=== PATIENT | male | born 1960 | race Caucasian/White ===

== ENCOUNTER 2023-02-07 08:47 | Outpatient (REF) | payer MEDICAID, SELFPAY ==
--- NOTE | ~2023-02-07 | XR_ITS ---
EXAMINATION: XR SHOULDER, LEFT CLINICAL INFORMATION: Pain, weakness and limited range of motion. COMPARISON: None available. TECHNIQUE: AP external rotation, Grashey, scapular Y, and axillary views of the left shoulder. FINDINGS: There is mild bony demineralization. The glenohumeral joint is intact. The acromioclavicular and coracoclavicular intervals are normal. There is moderate osteoarthritic change of the acromioclavicular joint. No fracture or dislocation is seen. There is mild irregularity of the undersurface of the distal acromion and of the greater tuberosity of the proximal left humerus. There is no abnormal soft tissue calcification or foreign body. No left pneumothorax is seen. XR/XR shoulder LT min 2V IMPRESSION: 1. No fracture or dislocation is seen. 2. 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 3. Findings are consistent with left rotator cuff impingement. No nataly calcific tendinitis is noted.
== END 2023-02-07 08:48 | disposition home or self-care (01) ==
LOC: HO.HHCX 08:47
PROVIDERS: Visit Provider General Practice
DX: M25.512 Pain in left shoulder (principal)
CPT/HCPCS: 73030

== ENCOUNTER 2023-04-10 08:51 | Outpatient (AMB) | payer MEDICAID, SELFPAY ==
--- NOTE | 2023-04-10 08:54 | A.OFFVIS_ITS ---
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 He reports that he has had ongoing pain for about 5 months now. Pain increases with most acitivties particularly above the shoulder activities and reaching. No previous treatments. He takes ibuprofen for the pain which no longer helps. 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 He complains of pain with daily activity, worse with overhead activity and at night, along with weakness. He has difficulty sleeping and has not been using his arm for all daily activities. He denies any prior treatment, and says NSAIDs are no longer helping his pain. He denies any recent falls or known injury. He says he slipped and fell on some ice several years ago, but this pain resolved with time. He stays active with exercise and daily activity, and he has been working on losing weight. 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 Review of Systems Const All systems reviewed & are unremarkable except as noted in HPI and below Physical Exam Const General: no acute distress, alert and awake Orientation/consciousness: patient oriented x3 HEENT Head: Yes normocephalic and Yes atraumatic Eyes EOM: EOMs intact bilaterally Resp Effort & Inspection: normal respiratory effort and able to speak in complete sentences Cardio Jugular venous distension: no JVD Skin General skin exam: turgor normal Rashes: no rashes Neuro General: patient oriented x3 Extrem Other: Left Shoulder: + H&N - empty can 90/120/35/S1 - liftoff Psych Appearance: grossly normal Affect: normal affect Attitude: cooperative Office Procedures Joint Injection/Drain Joint Injection/Drain Details: Injected 1 mL of Decadron and 3 mL 1% lidocaine and 3 mL of 0.25% Marcaine. Site was prepped using aseptic technique. Patient tolerated the procedure well. Primary Site: left shoulder Approach Used: posterolateral Coding 98497 - Large joint Procedure code (CPT) selection complete Results Reviewed Results Reviewed: 04/10/23 09:22 BUPivacaine MPF 0.25 % [Sensorcaine-MPF 0.25% 10 ML] 10 ml .ROUTE .STK-MED ONE Lidocaine HCl 2 % MPF [Xylocaine 2 % MPF] 5 ml .ROUTE .STK-MED ONE dexAMETHasone sod phosphate [Decadron] 4 mg .ROUTE .STK-MED ONE I personally reviewed relevant radiographs. moderate osteoarthritic change of the left acromioclavicular joint. Assessment & Plan Assessment & Plan (1) Impingement of left shoulder: Code(s): M25.812 - Other specified joint disorders, left shoulder Plan: This is a 62 year old man with left shoulder impingement. He has pain with daily activity, worse with overhead activity and at night. He is limited in his ADLs and has not been using his shoulder for daily activities. He denies any prior treatment. I discussed his diagnosis and treatment options. I recommend NSAIDs & PT. I injected his left shoulder today, which he tolerated well, ordered PT, prescribed Aleve, and provided him with a handout of at-home patricia-scapular strengthening exercises he can perform. He can follow up prn. Plan Scribed for Daniel Pitt MD by Anival Lopez, medical transcriptionist, on 04/10/23 at 9:20 AM, EST. Orders: Orders PT Evaluation and Treatment 04/10/23 M25.812 - Other specified joint disorders, left shoulder Coding Level of Care Code New Pt Level 3 (80612) Diagnoses Impingement of left shoulder M25.812 CPT Codes Coding - Large joint: 36521 - Large joint ([id number])
== END 2023-04-10 09:39 | disposition home or self-care (01) ==
PROVIDERS: Visit Provider Orthopaedic Surgery
DX: M25.812 Other specified joint disorders, left shoulder (principal)
CPT/HCPCS: 20610; 99204

== ENCOUNTER → 2023-04-10 08:51 | Outpatient (BNVA) | payer MEDICAID, SELFPAY | PROVIDERS: Visit Provider Orthopaedic Surgery | DX: M25.812 Other specified joint disorders, left shoulder (principal) | CPT/HCPCS: 20610; J1100 ==

== ENCOUNTER 2023-12-04 07:58 | Outpatient (AMB) | payer MEDICARE, SELFPAY ==
--- NOTE | 2023-12-04 08:05 | A.OFFPC_ITS ---
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 Intake Note: Pt is here to est care Pt needs referral for a colon screen last one over 20 years Allergies No Known Allergies Allergy (Unverified 12/04/23 08:38) Medication List - Last Reconciled 12/04/23 by JILL Fang No Known Home Meds Tobacco use date assessed: 12/04/23 Fall risk assessment: 1 Fall in past year Last assessed Fall Risk: 12/04/23 Dental Screening Dental Screen Date: 12/04/23 Did you have a dental visit in the last 12 months?: Yes Did you have a dental problem in the last 6 months where you did not have access to dental care?: No Was dental information given to patient?: Patient has dentist HPI HPI Comments History of Present Illness Details Patient is a 63-year-old male who I am meeting for the 1st time. He is not have a primary care provider in over 20 years. Patient is declining immunizations at this time. He will consider getting the shingles virus in the future. Patient is due for colonoscopy, will refer. Will draw full panel of labs. Will also draw A1c due to strong family history of diabetes type 2. Patient denies chest pain, shortness a breath, numbness, polyuria, polydipsia, nausea, vomiting, diarrhea. Patient has past medical history significant for sciatica right side, bilateral neuropathy of the feet bilaterally, left shoulder impingement. Patient has primary complaint of ear fullness, sinus tenderness, expect draining green and yellow mucus, cough, for the past 4 weeks. Patient states he feels like he has a hard time getting over illnesses. Has not tried any medication for relief. [facility] Surgical History History of appendectomy Family History Father Substance use disorder Father No problems noted. 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 1. Little interest or pleasure in doing things: nearly every day 2. Feeling down, depressed, or hopeless: nearly every day 3. Trouble falling or staying asleep, or sleeping too much: more than half the days 4. Feeling tired or having little energy: nearly every day 5. Poor appetite or overeating: several days 6. Feeling bad about yourself - or that you are a failure or have let yourself or your family down: several days 7. Trouble concentrating on things, such as reading the newspaper or watching television: several days 8. Moving or speaking so slowly that other people could have noticed. Or the opposite - being so fidgety or restless that you have been moving around a lot more than usual: several days 9. Thoughts that you would be better off or of hurting yourself in some way: not at all Total score: 15 Source: Developed by Drs. Wilner Bradford, Irina Stoddard, Joe Peguero and colleagues, with an educational melly from [employer]. Thrive Questionnaire Date Thrive assessed: 12/04/23 I am a: Patient What is your living situation today?: I have a steady place to live Within the past 12 months, did the food you bought not last and you didn't have the money to get more?: Sometimes True Within the past 12 months, did you worry whether your food would run out before you got money to buy more?: Sometimes True Do you have trouble paying for medicines?: Yes Do you have trouble getting transportation to medical appointments?: No Do you have trouble paying your heating and electricity bill?: No Do you have trouble taking care of your child, family member or friend?: Yes Do you have trouble with day-to-day activities such as bathing, preparing meals, shopping, managing finances, etc.?: Yes Are you currently unemployed and looking for a job?: No Are you interested in more education?: No THRIVE Score: 2 AUDIT C Alcohol Use Questionnaire (AUDIT-C) 1. How often do you have a drink containing alcohol?: Monthly or less 2. How many drinks containing alcohol do you have on a typical day when you are drinking?: 3 or 4 3. How often do you have six or more drinks on one occasion?: Never Total Score: 2 KHRIS-7 AMB Questionnaire KHRIS-7 Date KHRIS - 7 assessed: 12/04/23 Feeling nervous, anxious, or on edge: 1 = Several days Not being able to stop or control worryin = Several days Worrying too much about different things: 3 = Nearly every day Trouble relaxin = More than half the days Being so restless that it is hard to sit still: 1 = Several days Becoming easily annoyed or irritable: 3 = Nearly every day Feeling afraid as if something awful might happen: 3 = Nearly every day Total KHRIS-7 score (0-4 normal; 5-9 mild; 10-14 moderate; 15-21 severe): 14 Source: Developed by Drs. Wilner Bradford, Irina Stoddard, Joe Peguero and colleagues, with an educational melly from [employer]. Review of Systems Const Details: Constitutional : No Weight loss, No Fever, Admitgs some Chills, No Fatigue, Admits some Malaise ENT/Mouth : No sore throat, No Rhinorrhea, Admits ear fullness. Eyes: No Eye Pain, No Swelling, No Redness Cardiovascular : No Chest Pain, No SOB, No Dyspnea on Exertion, No Orthopnea, No Edema, No Palpitations Respiratory : Admits Cough, Admits green/brown Sputum, No Wheezing Gastrointestinal : No Nausea, No Vomiting, No Diarrhea, No Constipation, No abdominal Pain, No Hematochezia, No Melena Genitourinary : No Dysuria, No Urinary Frequency, No Hematuria, Musculoskeletal : Admits lower back pain. Skin : No Skin Lesions, No rash Neuro : No Weakness, Admits some Numbness, No Dizziness, No Headache Psych : No Anxiety/Panic, No Depression Heme/Lymph: No Bruising, No Bleeding,No Lymphadenopathy Endocrine : No Polyuria, No Polydipsia All other systems reviewed and are negative Physical exam (Primary Care) Vital Signs: Last Vital Signs Pulse 51 12/04/23 08:08 BP 128/70 12/04/23 08:08 Pulse Ox 100 12/04/23 08:08 Oxygen Delivery Method Room Air 12/04/23 08:08 Care Plan Goal for BP management: Patient's heart rate 60 beats per minute on EKG in office BMI result Body Mass Index 27.0 Tobacco/Smoking Status: Tobacco use Status Tobacco use date assessed 12/04/23 12/04/23 08:14 Patient Tobacco Use Status Former Tobacco user 12/04/23 08:14 e-Cigarette/Vaping Use Never Used 12/04/23 08:14 Const Other: Appearance: Alert.? Oriented X3.? No acute distress.? Head: Normocephalic, atraumatic. Eyes: Pupils equal, round and reactive to light.?No photophobia. ENT: + post nasal drip and erythema. +sinus tenderness, TM intact and pearly márquez with effusion no erythema. ? Neck: Normal inspection.? Neck supple.?Full ROM CVS: Normal heart rate and rhythm.? Pulses normal.? Respiratory: No respiratory distress.? Bilateral wheeze upper lobes. Abdomen: Soft and nontender.? Skin: Skin warm and dry.? Normal skin color.? Normal skin turgor.? Extremities: No lower extremity edema.? No calf ttp. 5/5 strength to bilateral upper and lower extremities Back: No midline tenderness, no C-spine tenderness, full range of motion, no CVA tenderness bilaterally, + Straight leg test right side. Neuro: Oriented X 3.? No motor deficit. + sensate to monofilament. CN 2-12 intact Assessment and Plan Assessment & Plan (1) Sinusitis: Comment: Patient will be given prednisone azithromycin to be taken as prescribed. Patient has been educated on side effects of these medications Code(s): J32.9 - Chronic sinusitis, unspecified Qualifiers: Chronicity: acute Recurrence: not specified as recurrent Sinusitis location: other Qualified Code(s): J01.80 - Other acute sinusitis (2) Cough: Comment: Patient will be given prednisone and albuterol inhaler. Patient will also be given Flonase and cetirizine. Postnasal drip likely exacerbating cough Code(s): R05.9 - Cough, unspecified Qualifiers: Cough type: acute Qualified Code(s): R05.1 - Acute cough (3) Right sided sciatica: Comment: Patient will be given prednisone to be taken as directed. Patient does not want other medications or interventions at this time. Code(s): M54.31 - Sciatica, right side Plan: Take your medications as prescribed. If you were prescribed antibiotics today, it is important that you take your medication to their entirety, do not skip any doses, do not finish them early. Follow-up with your primary care provider this week. Return to the emergency department with new or worsening symptoms. Such as fevers, chills, chest pain, shortness of breath, nausea, vomiting, dizziness, headache, vision changes, lethargy In case of emergency call 911 Plan Follow-up in 3 months. Orders: Orders Comprehensive Met. Panel Today Z91.89 - Other specified personal risk factors, not elsewhere classified Complete Blood Count Auto Diff Today Z13.0 - Encounter for screening for diseases of the blood and blood-forming organs and certain disorders involving the immune mechanism PSA,Total (Free>4and<10) Today Z13.89 - Encounter for screening for other disorder Vitamin D 25-OH (D2 and D3) Today Z13.21 - Encounter for screening for nutritional disorder Vitamin B12 Today Z13.21 - Encounter for screening for nutritional disorder AMB EKG-In Office Today R00.1 - Bradycardia, unspecified, Z13.6 - Encounter for screening for cardiovascular disorders SARS-CoV2/FLU/RSV Today J06.9 - Acute upper respiratory infection, unspecified Lipid Panel Today Z13.220 - Encounter for screening for lipoid disorders Vitamin B6 Today Z13.21 - Encounter for screening for nutritional disorder UA CC w/rflx Micro + Cult Today Z13.89 - Encounter for screening for other disorder TSH reflex Free T4 Today Z13.29 - Encounter for screening for other suspected endocrine disorder Hemoglobin A1c Today Z13.1 - Encounter for screening for diabetes mellitus Referrals Gastroenterology Referral Z12.11 - Encounter for screening for malignant neoplasm of colon Medications: New fluticasone propionate 50 mcg/actuation (Allergy Relief (fluticasone)) administer into each nostril 2 sprays intranasal DAILY 16 grams 0RF prednisone 20 mg PO BID 10 tabs 0RF azithromycin For 250 mg dose pack: take 500 mg today (day 1), then 250 mg for 4 days (days 2-5) PO 6 tabs 0RF cetirizine (All Day Allergy (cetirizine)) 10 mg PO DAILY PRN 90 tabs 0RF allergy symptoms albuterol sulfate 90 mcg/actuation 2 puffs inhalation Q6H PRN 6.7 grams 0RF shortness of breath or wheezing Review Patient declined Pneumococcal Vaccine: 12/04/23 Flu Vaccine not done: patient reason (declined) Declined TDap/Td: 12/04/23 Coding Level of Care Code Est Pt Level 4 (34205) Diagnoses Other acute sinusitis, recurrence not specified J01.80 Chronicity: acute Recurrence: not specified as recurrent Sinusitis location: other Acute cough R05.1 Cough type: acute Right sided sciatica M54.31 Time Spent (min) 50
[2023-12-04 08:08] VITALS: BP 128/70; PULSE 51; O2SAT 100; BMI 27.0
[2023-12-04 09:10] VITALS: PULSE 68
== END 2023-12-04 09:12 | disposition home or self-care (01) ==
PROVIDERS: Visit Provider Nurse Practitioner Primary Care
DX: J01.80 Other acute sinusitis (principal); R05.1 Acute cough; M54.31 Sciatica, right side
CPT/HCPCS: 99214

== ENCOUNTER 2023-12-04 09:07 | Outpatient (REF) | payer MEDICARE, SELFPAY ==
[2023-12-04 11:36] LABS: MANUAL DIFF FLAG NO
[2023-12-04 11:37] LABS: Appearance Urine Clear; Color Urine Yellow; Glucose Urine UA Negative (Negative); Leukocyte Esterase Urine Negative (Negative); Nitrite Urine Negative (Negative); Urine Blood Negative (Negative); Urine Ketones Negative (Negative); Urine Protein Negative (Neg-Trace)
[2023-12-04 11:42] LABS: Basophils Absolute Auto 0.1 X10*3/uL (0.0-0.2); Basophils Percent Auto 0.8 % (0-2); Eosinophils Absolute Auto 0.2 X10*3/uL (0.0-0.4); Eosinophils Percent Auto 2.8 % (0-4); Hematocrit 41.9 % (42.0-52.0); Hemoglobin 14.1 g/dl (14.0-18.0); Imm Gran Abs Auto 0.04 X10*3/uL (0.00-0.03); Imm Gran Pct Auto 0.5 % (0.0-0.4); Lymphocytes Absolute Auto 1.7 X10*3/uL (1.2-4.9); Lymphocytes Percent Auto 22.8 % (20-40); Mean Corpuscular HGB Conc 33.7 g/dl (31.0-36.0); Mean Corpuscular Volume 95.2 fL (80.0-98.0); Mean Platelet Volume 10.1 fL (9.4-12.4); Monocytes Absolute Auto 0.7 X10*3/uL (0.1-1.2); Monocytes Percent Auto 9.3 % (2-11); Neutrophils Absolute Auto 4.8 x10*3/uL (2.0-8.3); Neutrophils Percent Auto 63.8 % (45-73); Platelet Count 376 X10*3/uL (160-400); Red Cell Distribution Width 12.6 % (11.0-16.0); White Blood Count 7.6 X10*3/uL (4.8-10.8)
[2023-12-04 12:02] LABS: Estimated Average Glucose 117 mg/dL; Hemoglobin A1c % 5.7 % (<6.0)
[2023-12-04 12:06] LABS: Alanine Aminotransferase 31 U/L (0-40); Albumin Level 4.3 g/dL (3.5-5.0); Alkaline Phosphatase 57 U/L (39-117); Anion Gap 14 (12-20); Aspartate Amino Transferase 30 U/L (5-37); Bilirubin Total 0.3 mg/dL (0.0-1.0); Blood Urea Nitrogen 16 mg/dL (9-16); Calcium 9.7 mg/dL (8.4-10.2); Carbon Dioxide 26 mmol/L (22-29); Chloride 106 mmol/L (96-108); Cholesterol 161 mg/dL (<200); Estimated Glomerular Filt Rate > 60; Glucose Random 100 mg/dL (60-115); HDL Cholesterol 49 mg/dL (>40); LDL Cholesterol Calculated 98 mg/dL (<100); Potassium 4.3 mmol/L (3.3-5.1); Sodium 142 mmol/L (135-145); Total Protein 7.8 g/dL (6.5-8.0); Triglycerides 71 mg/dL (<150)
[2023-12-04 12:22] LABS: PSA,Total (Free>4and<10) 0.88 ng/mL (0.00-4.00); TSH reflex Free T4 1.15 uIU/mL (0.32-4.0)
[2023-12-04 12:30] LABS: Vitamin B12 1025 pg/mL (200-900)
[2023-12-04 14:11] LABS: Influenza A PCR NEGATIVE (Negative); Influenza B PCR NEGATIVE (Negative); Resp Syncy Virus RNA Qual PCR NEGATIVE (Negative); SARS COV2 PCR INHOUSE NEGATIVE (Negative)
[2023-12-08 23:09] LABS: Vitamin D 25-OH, D2 <4 ng/mL; Vitamin D 25-OH, D3 34 ng/mL; Vitamin D 25-OH, Total 34 ng/mL (30-100)
[2023-12-09 15:53] LABS: Vitamin B6 22.5 ng/mL (2.1-21.7)
== END 2023-12-04 09:08 | disposition home or self-care (01) ==
LOC: HO.HMGCLDS 09:07
PROVIDERS: PCP Nurse Practitioner Primary Care; Visit Provider Nurse Practitioner Primary Care
DX: Z12.5 Encounter for screening for malignant neoplasm of prostate (principal); Z13.6 Encounter for screening for cardiovascular disorders; Z11.52 Encounter for screening for COVID-19; Z20.822 Contact with and (suspected) exposure to COVID-19; Z13.89 Encounter for screening for other disorder; Z13.220 Encounter for screening for lipoid disorders; Z13.21 Encounter for screening for nutritional disorder; Z13.29 Encounter for screening for other suspected endocrine disorder; Z13.0 Encounter for screening for diseases of the blood and blood-forming organs and certain disorders involving the immune mechanism; J06.9 Acute upper respiratory infection, unspecified; Z91.89 Other specified personal risk factors, not elsewhere classified
CPT/HCPCS: 0241U; 36415; 80053; 80061; 81003; 82306; 82607; 83036; 84153; 84207; 84443; 85025

== ENCOUNTER 2024-03-08 08:08 | Outpatient (AMB) | payer MEDICARE, SELFPAY ==
--- NOTE | 2024-03-08 08:18 | A.OFFPC_ITS ---
Vital Signs 03/08/24 08:20 Height 5 ft 6 in Weight 171 lb BMI 27.6 BP 118/60 Blood Pressure Location Rt brachial Position Sitting Pulse 60 Pulse Source Pulse Oximeter Pulse Oximetry (%) 98 Oxygen Delivery Method Room Air Intake Visit Reasons: 3 month follow up medication Intake Note: pt is here for 3 mo medication f/u Allergies No Known Allergies Allergy (Verified 03/08/24 08:44) Medication List - Last Reconciled 03/08/24 by JILL Fang albuterol sulfate 90 mcg/actuation 2 puffs inhalation Q6H PRN cetirizine (All Day Allergy (cetirizine)) 10 mg PO DAILY PRN fluticasone propionate 50 mcg/actuation (Allergy Relief (fluticasone)) 2 sprays intranasal DAILY prednisone 40 mg (2 x 20 mg) PO DAILY Tobacco use date assessed: 03/08/24 Fall risk assessment: No Falls in past year Dental Screening Dental Screen Date: 03/08/24 Did you have a dental visit in the last 12 months?: Yes Did you have a dental problem in the last 6 months where you did not have access to dental care?: No Was dental information given to patient?: Patient has dentist HPI HPI Comments History of Present Illness Details Patient is a 63-year-old male in today for a follow-up. He is up-to-date with Tdap. Patient has colonoscopy scheduled in 2 months. Patient is in with chief complaint of lower back pain and radiculopathy down his right leg. Patient states this has been a chronic issue which he has been dealing with for the past several years. Denies any trauma to the area but states that he is always working in his garage doing physical work in feels that the pain and sciatic has gotten progressively worse over the past year. He does have full range of motion. Denies any tingling or numbness. Denies saddle numbness Will order lumbar and SI x-ray. Will refer patient to physical therapy [facility] Surgical History History of appendectomy Family History Father Substance use disorder Father No problems noted. 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 1. Little interest or pleasure in doing things: not at all 2. Feeling down, depressed, or hopeless: not at all 3. Trouble falling or staying asleep, or sleeping too much: nearly every day 4. Feeling tired or having little energy: more than half the days 5. Poor appetite or overeating: not at all 6. Feeling bad about yourself - or that you are a failure or have let yourself or your family down: not at all 7. Trouble concentrating on things, such as reading the newspaper or watching television: not at all 8. Moving or speaking so slowly that other people could have noticed. Or the opposite - being so fidgety or restless that you have been moving around a lot more than usual: not at all 9. Thoughts that you would be better off or of hurting yourself in some way: not at all Total score: 5 Depression Screening Interpretation: Negative Depression Screening Done: Yes 97538 - PHQ-9 Billing: Yes Source: Developed by Drs. Wilner Bradford, Irina Stoddard, Joe Peguero and colleagues, with an educational melly from [employer]. Thrive Questionnaire Date Thrive assessed: 12/04/23 AUDIT C Alcohol Use Questionnaire (AUDIT-C) 1. How often do you have a drink containing alcohol?: 2-3 times a week 2. How many drinks containing alcohol do you have on a typical day when you are drinking?: 3 or 4 3. How often do you have six or more drinks on one occasion?: Never Total Score: 4 KHRIS-7 AMB Questionnaire KHRIS-7 Date KHRIS - 7 assessed: 03/08/24 Feeling nervous, anxious, or on edge: 0 = Not at all Not being able to stop or control worryin = More than half the days Worrying too much about different things: 2 = More than half the days Trouble relaxin = Not at all Being so restless that it is hard to sit still: 0 = Not at all Becoming easily annoyed or irritable: 0 = Not at all Feeling afraid as if something awful might happen: 0 = Not at all Total KHRIS-7 score (0-4 normal; 5-9 mild; 10-14 moderate; 15-21 severe): 4 Source: Developed by Drs. Wilner Bradford, Irina Stoddard, Joe Peguero and colleagues, with an educational melly from [employer]. KHRIS-7 Assessment Billing KHRIS-7 Assessment Tool: KHRIS-7 Assessment 20182 Review of Systems Const All systems reviewed & are unremarkable except as noted in HPI and below Physical exam (Primary Care) Care Plan Goal for BP management: Blood pressure is controlled Tobacco/Smoking Status: Tobacco use Status Tobacco use date assessed 12/04/23 12/04/23 08:14 Patient Tobacco Use Status Former Tobacco user 12/04/23 08:14 e-Cigarette/Vaping Use Never Used 12/04/23 08:14 Depression Screening Interpretation: Negative Thrive Assessment: Date of Thrive Assessment Date Thrive assessed 12/04/23 12/04/23 09:06 Const Other: Appearance: Alert.? Oriented X3.? No acute distress.? Head: Normocephalic Neck: Normal inspection.? Neck supple.? CVS: Normal heart rate and rhythm.? Pulses normal.? Respiratory: No respiratory distress.? Breath sounds normal.? Extremities: No lower extremity edema.? No calf ttp. 5/5 strength to bilateral upper and lower extremities Back: No midline tenderness, no C-spine tenderness, full range of motion, no CVA tenderness bilaterally, +stright leg test right side. Neuro: Oriented X 3.? No motor deficit.? No sensory deficit. CN 2-12 intact Assessment and Plan Assessment & Plan (1) Lower back pain: Comment: Will order x-ray, will give prednisone, will refer to physical therapy Code(s): M54.50 - Low back pain, unspecified Qualifiers: Chronicity: unspecified Back pain laterality: right Sciatica presence: with sciatica Sciatica laterality: sciatica of right side Qualified Code(s): M54.41 - Lumbago with sciatica, right side (2) SI (sacroiliac) pain: Comment: Will order x-ray, will give prednisone, will refer to physical therapy Code(s): M53.3 - Sacrococcygeal disorders, not elsewhere classified Plan: Follow up in 6 months. Orders: Orders XR lumbar spine 2-3V Today M54.50 - Low back pain, unspecified XR sacroiliac joint 1-2V Today M53.3 - Sacrococcygeal disorders, not elsewhere classified Medications: New prednisone 40 mg (2 x 20 mg) PO DAILY 10 tabs 0RF Coding Level of Care Code Est Pt Level 3 (79592) Diagnoses Right-sided low back pain with right-sided sciatica, unspecified chronicity M54.41 Chronicity: unspecified Back pain laterality: right Sciatica presence: with sciatica Sciatica laterality: sciatica of right side SI (sacroiliac) pain M53.3 Additional Codes KHRIS-7 Assessment Billing - KHRIS-7 Assessment Tool: KHRIS-7 Assessment 97916 ([id number]) Time Spent (min) 24
[2024-03-08 08:20] VITALS: BP 118/60; PULSE 60; O2SAT 98; BMI 27.6
== END 2024-03-08 08:47 | disposition home or self-care (01) ==
PROVIDERS: PCP Nurse Practitioner Primary Care; Visit Provider Nurse Practitioner Primary Care
DX: M54.41 Lumbago with sciatica, right side (principal); M53.3 Sacrococcygeal disorders, not elsewhere classified
CPT/HCPCS: 99213

== ENCOUNTER 2024-06-04 14:30 | Outpatient (AMB) | payer MEDICARE, SELFPAY ==
--- NOTE | 2024-06-04 14:36 | AM.OFFWIN_ITS ---
Intake Vital Signs 06/04/24 14:37 Height 5 ft 6 in Weight 167 lb BMI 27.0 BP 110/70 Blood Pressure Location Lt brachial Position Sitting Pulse 63 Pulse Source Pulse Oximeter Pulse Oximetry (%) 97 Oxygen Delivery Method Room Air Intake Visit Reasons: EP Covid+ 10 days ago, can't shake it, sob Intake Note: Patient here for SOB that doesn't seem to get better. He tested positive 10 days ago. Patient Tobacco Use Status: Former Tobacco user Allergies No Known Allergies Allergy (Verified 06/04/24 14:39) Do you need a note to return to daycare/school/sports/work: No HPI HPI Comments History of Present Illness Details Patient is a 63-year-old male complaining of 10 days shortness of breath, fatigue and a productive cough. He states he tested positive for COVID 10 days ago, he had fevers which have resolved but he continues to have head congestion, some sinus pain, a productive cough with thick white sputum and shortness of breaths. He states he has an albuterol inhaler because he was diagnosed with pneumonia last November so he used it with some mild relief. He states he has also exhausted but has been unable to take time off of work and rest. [facility] Surgical History History of appendectomy Family History Father Substance use disorder Father No problems noted. 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 Current occupational exposures/hazards: Yes Review of Systems Const All systems reviewed & are unremarkable except as noted in HPI and below Physical Exam Vital Signs: Last Vital Signs Pulse 63 06/04/24 14:37 BP 110/70 06/04/24 14:37 Pulse Ox 97 06/04/24 14:37 Oxygen Delivery Method Room Air 06/04/24 14:37 BMI result Body Mass Index 27.0 Const General: cooperative, healthy appearing, comfortable and no acute distress Orientation/consciousness: patient oriented x3 Limitations: no limitations HEENT Head: Yes normal to inspection Ears: hearing grossly normal bilaterally, external ears normal and TM's normal bilaterally General nose exam: Normal external nose present, Normal nares present and No nasal discharge present Face and sinus: Yes normal facial exam and Yes sinus tenderness Mouth: Normal oral and palatal mucosa present and moist mucous membranes Throat: Yes tonsils normal, Yes uvula midline and Yes posterior oropharynx abnormal (Erythema) Eyes General: appearance normal, both eyes and all related structures Neck Neck: Yes normal visual inspection Resp Effort & Inspection: normal respiratory effort, able to speak in complete sentences, Actively coughing, no respiratory distress, not tachypneic, no tripod positioning and no use of accessory muscles Auscultation: clear to auscultation bilaterally Cardio Rate: regular rate Rhythm: regular rhythm Heart sounds: normal S1 and S2 Skin General skin exam: no rashes or lesions noted Neuro General: patient oriented x3 Extrem General: Yes normal to inspection and Yes no clubbing, cyanosis or edema Assessment & Plan Assessment & Plan (1) URI (upper respiratory infection): Code(s): J06.9 - Acute upper respiratory infection, unspecified Qualifiers: URI type: unspecified URI Qualified Code(s): J06.9 - Acute upper respiratory infection, unspecified Plan: We will get chest x-ray to rule out pneumonia however I am going to treat him with Augmentin regardless. Plan see above Orders: Orders XR chest 2V Today R05.9 - Cough, unspecified Coding Level of Care Code Est Pt Level 4 (09195) Diagnoses Upper respiratory tract infection, unspecified type J06.9 URI type: unspecified URI
[2024-06-04 14:37] VITALS: BP 110/70; PULSE 63; O2SAT 97; BMI 27.0
== END 2024-06-04 15:05 | disposition home or self-care (01) ==
PROVIDERS: PCP Nurse Practitioner Family; Visit Provider Physician Assistant
DX: J06.9 Acute upper respiratory infection, unspecified (principal)
CPT/HCPCS: 99214

== ENCOUNTER 2024-06-04 14:59 | Outpatient (REF) | payer MEDICARE, SELFPAY ==
--- NOTE | ~2024-06-04 | XR_ITS ---
EXAMINATION: XR CHEST CLINICAL INFORMATION: Cough. COMPARISON: CT chest 11/17/2019. Chest radiograph 11/17/2019. TECHNIQUE: 2 views of the chest were obtained. FINDINGS: Normal appearance of the cardiomediastinal silhouette. No focal consolidation, pleural effusion or pneumothorax. Subtle approximately 7 mm nodular-like opacity projecting over the lateral left lung base. Thoracic spondylosis. No acute osseous findings. XR/XR chest 2V IMPRESSION: Subtle nodular-like opacity in the left lung base that could be related with overlapping soft tissues versus true nodule. Recommend follow-up with chest radiograph in 3 months. Otherwise, clear lungs. The report will be called to the ordering clinician by a [facility] Physician Meat Apprentice. Electronically signed by: Maria Ridley MD 06/04/2024 04:44 PM EDT
== END 2024-06-04 15:00 | disposition home or self-care (01) ==
LOC: HO.HMGCX 14:59
PROVIDERS: PCP Nurse Practitioner Family; Visit Provider Physician Assistant
DX: R05.9 Cough, unspecified (principal)
CPT/HCPCS: 71046

== ENCOUNTER 2024-09-08 09:11 | Outpatient (AMB) | payer MEDICARE, SELFPAY ==
[2024-09-08 09:20] VITALS: BP 122/60; PULSE 69; O2SAT 98; BMI 28.6
--- NOTE | 2024-09-08 09:20 | A.OFFPC_ITS ---
Vital Signs 09/08/24 09:20 Height 5 ft 6 in Weight 177 lb BMI 28.6 BP 122/60 Blood Pressure Location Rt brachial Position Sitting Pulse 69 Pulse Source Pulse Oximeter Pulse Oximetry (%) 98 Oxygen Delivery Method Room Air Intake Visit Reasons: transfer from [facility] Note: Pt is here today transfered from [facility] Allergies No Known Allergies Allergy (Verified 09/08/24 09:21) Tobacco use date assessed: 09/08/24 Fall risk assessment: No Falls in past year Last assessed Fall Risk: 09/08/24 Dental Screening Dental Screen Date: 09/08/24 Did you have a dental visit in the last 12 months?: Yes Did you have a dental problem in the last 6 months where you did not have access to dental care?: Yes Was dental information given to patient?: Patient has dentist HPI transfer from [facility] Details Chief Complaint Patient presents for a cortisone injection in the left shoulder and evaluation of persistent fatigue and low testosterone levels. History of Present Illness The patient is a 64-year-old male presenting with a request for a cortisone injection in the left shoulder. The patient reports a longstanding history of pain in the left shoulder, initially starting years ago. There was a previous consideration for surgical intervention to clean the cartilage, but the patient declined due to occupational constraints and preference against surgery. He has been receiving intermittent cortisone injections, which have provided effective symptomatic relief. Recent imaging from January 2023 indicated moderate osteoarthritis and a rotator cuff impingement in the left shoulder. 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 Additionally, the patient experiences persistent fatigue, suspected to be linked to low testosterone levels, especially [id number] infection approximately four months ago. The patient had COVID-19 twice, initially in early 2019 marked by severe symptoms and hospitalization, and more recently with milder symptoms but ongoing fatigue and reduced libido since then, with ED. The possibility of long COVID and its impact on energy levels and sexual health is considered. An interest in assessment and management for low testosterone has been expressed. 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 - Lives and works at the same location, convenient setup. - Exercises regularly and reports good n utrition intake. - Social habits: Occasional beer consump tion, previously smoked cannabis but no longer uses. - Relationship: Has a girlfriend who is 10 years younger; she provides substantial support, though he reports decreased physical attraction to her. Health Maintenance - Declined influenza and COVID-19 vaccin es. - Routine follow-up and laboratory work planned for testosterone evaluation and chest x-ray. Review of Systems - General: Reports persistent fatigue. - Respiratory: Denies ongoing shortness of breath but mentions a history of [id number] symptoms and a past nodule finding. - Musculoskeletal: Reports left shoulder pain and seeks cortisone injection. Physical Exam General: Cooperative, healthy appearing, comfortable, no acute distress and well developed Orientation: Patient oriented x3 Limitations: No limitations Head: Normal to inspection Ears: Hearing grossly normal bilaterally Nose: Normal external nose present Face and sinus: Normal facial exam Eyes: Appearance normal, both eyes and all related structures Neck: Normal visual inspection and Yes full ROM Respiratory: Normal respiratory effort and able to speak in complete sentences. Clear to auscultation bilaterally Cardiovascular: Regular rate and rhythm. Normal S1 and S2 GI: Normal to inspection. Soft to palpation and nontender Skin: No rashes or lesions noted Neuro: Patient oriented x3 Extremities: Normal to inspection, full ROM noted to LUE, though tenderness reported with ROM Results - Imaging: Past chest x-ray with noted n odular opacity in the left lung base. - Imaging: January 2023 x-ray indicated mode rate osteoarthritis and rotator cuff impingement in the left shoulder. Plan - Proceed with cortisone injection for t he left shoulder osteoarthritis and rotator cuff impingement to alleviate pain. - Conduct laboratory evaluations includi ng testosterone levels to assess for hypogonadism. - Order a follow-up chest x-ray to [facility] evaluate the noted pulmonary nodule and monitor its status. - Schedule a follow-up appointment in out 5-6 months to review lab results and reassess symptoms, including fatigue and potential long COVID effects. Patient was informed and verbally consented to the use of an ambient scribe for clinic note documentation during this visit. Discussion Notes During the consultation, I discussed the patient's shoulder pain management options, confirming the efficacy of cortisone injections for this type of degenerative joint disease. I emphasized the importance of regular monitoring of testosterone levels due to his symptoms suggestive of hypogonadism, potentially exacerbated by his COVID-19 history. I explained the significance of evaluating the lung nodule through follow-up imaging to rule out any sinister pathology (noted approx 3 months ago on urgent care documentation). I addressed concerns about persistent fatigue, noting it could potentially be linked to long COVID. The patient was counseled on the necessity of morning lab work to accurately assess testosterone levels. He was informed about the financial responsibilities related to non-insured services. Patient Instructions - Obtain a morning blood test for testos terone levels and complete the lab work as instructed. - Schedule a follow-up chest x-ray to ev aluate the pulmonary nodule. - Monitor shoulder symptoms and seek a c ortisone injection as per the specialty clinic's recommendation. - Follow lifestyle modifications focusin g on adequate rest, nutrition, and continued exercise. - Return for a follow-up appointment in 5-6 months or sooner if symptoms worsen. [facility] Surgical History History of appendectomy Family History Father Substance use disorder Father No problems noted. 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 Wilner Bradford, Irina Stoddard, Joe Peguero and colleagues, with an educational melly from [employer]. Physical exam (Primary Care) Vital Signs: Last Vital Signs Pulse 69 09/08/24 09:20 BP 122/60 09/08/24 09:20 Pulse Ox 98 09/08/24 09:20 Oxygen Delivery Method Room Air 09/08/24 09:20 BMI result Body Mass Index 28.6 Tobacco/Smoking Status: Tobacco use Status Tobacco use date assessed 09/08/24 09/08/24 09:25 Patient Tobacco Use Status Former Tobacco user 09/08/24 09:25 e-Cigarette/Vaping Use Never Used 09/08/24 09:25 Thrive Assessment: Date of Thrive Assessment Date Thrive assessed 12/04/23 09/08/24 09:25 Coding Level of Care Code Est Pt Level 3 (55459) Diagnoses Fatigue R53.83 Impingement of left shoulder M25.812 Assessment & Plan Assessment & Plan (1) Fatigue: Code(s): R53.83 - Other fatigue Category: Medical (2) Impingement of left shoulder: Code(s): M25.812 - Other specified joint disorders, left shoulder Category: Medical Plan . Orders: Orders Complete Blood Count Auto Diff Today R53.83 - Other fatigue UA CC w/rflx Micro + Cult Today R53.83 - Other fatigue Ferritin Today R53.83 - Other fatigue Testosterone, Free/Total Today R53.83 - Other fatigue Comprehensive Met. Panel Today R53.83 - Other fatigue TSH reflex Free T4 Today R53.83 - Other fatigue IRON PROFILE Today R53.83 - Other fatigue Referrals Orthopedics Referral M25.812 - Other specified joint disorders, left shoulder
== END 2024-09-08 09:56 | disposition home or self-care (01) ==
PROVIDERS: PCP Nurse Practitioner Family; Visit Provider Nurse Practitioner Family
DX: R53.83 Other fatigue (principal); M25.812 Other specified joint disorders, left shoulder

== ENCOUNTER → 2024-09-08 09:11 | Outpatient (BNVA) | payer MEDICARE, SELFPAY | PROVIDERS: PCP Nurse Practitioner Family; Visit Provider Nurse Practitioner Family | DX: R53.83 Other fatigue (principal); M25.812 Other specified joint disorders, left shoulder | CPT/HCPCS: 99212 ==

== ENCOUNTER 2024-10-11 11:04 | Outpatient (AMB) | payer MEDICARE, SELFPAY ==
--- NOTE | 2024-10-11 11:16 | A.OFFVIS_ITS ---
Intake Visit Reasons: OV - Left Shoulder Impingement - Last Inj 03/2023 Intake Note: Denny is a 64 year old right hand dominant male who presents today for a follow up of his left shoulder impingement. Patient has pain with daily activity and worsens with overhead activity and at night. At his last appt in March of 2023 an injection was administered, prescribed Aleve, placed an order for physical therapy and provided at home exercise program. 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 He has had injections in his left shoulder in the past and these have been helpful. He has pain at night and with overhead lifting. COUNT INCLUDES THE [facility] Surgical History History of appendectomy Family History Father Substance use disorder Father No problems noted. 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 Current occupational exposures/hazards: Yes Cognitive needs: No Hearing needs: No Vision needs: Yes Physical Exam Const General: no acute distress, alert and awake Orientation/consciousness: patient oriented x3 HEENT Head: Yes normocephalic and Yes atraumatic Eyes EOM: EOMs intact bilaterally Resp Effort & Inspection: normal respiratory effort and able to speak in complete sentences Cardio Jugular venous distension: no JVD Skin General skin exam: turgor normal Rashes: no rashes Neuro General: patient oriented x3 Extrem Other: Left Shoulder: + H&N - empty can 90/120/35/S1 - liftoff Psych Appearance: grossly normal Affect: normal affect Attitude: cooperative Office Procedures Joint Inj/Aspir; Non-Pain Clin Joint Injection/Drain Details: Injected 1 mL of Decadron and 3 mL 1% lidocaine and 3 mL of 0.25% Marcaine. Site was prepped using aseptic technique. Patient tolerated the procedure well. Shoulders, Hips, Knees, Shoulder Injection Large joint : Left Shoulder Coding Procedure code (CPT) selection complete Assessment & Plan Assessment & Plan (1) Impingement of left shoulder: Code(s): M25.812 - Other specified joint disorders, left shoulder Category: Medical Plan: 64-year-old gentleman with left shoulder impingement. I injected his left shoulder. I reviewed shoulder safe exercises. He can follow up as needed. Coding Level of Care Code Est Pt Level 3 (17250) Diagnoses Impingement of left shoulder M25.812 CPT Codes Shoulders, Hips, Knees, - Shoulder Injection Large joint : Left Shoulder ([id number])
== END 2024-10-11 11:49 | disposition home or self-care (01) ==
PROVIDERS: PCP Nurse Practitioner Family; Visit Provider Orthopaedic Surgery
DX: M25.812 Other specified joint disorders, left shoulder (principal)
CPT/HCPCS: 20610; 99213

== ENCOUNTER → 2024-10-11 11:04 | Outpatient (BNVA) | payer MEDICARE, SELFPAY | PROVIDERS: PCP Nurse Practitioner Family; Visit Provider Orthopaedic Surgery | DX: M25.812 Other specified joint disorders, left shoulder (principal) | CPT/HCPCS: 20610; 99212; J0665; J1100; J2003 ==